=== PATIENT | male | born 1975 | race Caucasian/White ===

== ENCOUNTER 2021-08-04 14:52 | Emergency (ER) | payer BC ==
[~2021-08-04 14:52] MED LIST: Atropine Sulfate 1 mg/10 ml Syringe ONE; Calcium Chloride 1 GM/10 ML Abboject SYRINGE ONE; EPINEPHrine 1 MG/10 ML Abboject SYRINGE ONE; Heparin 1,000 UNITS/ML VIAL ONE; Sodium Bicarb 50 MEQ/50 ML Abboject 8.4% SYRINGE ONE
[2021-08-04] MEDS ORDERED: Ondansetron PF 4 MG/2 ML Vial ONE ×2 (15:06→15:27)
[2021-08-04] MEDS ORDERED: Heparin 25,000 units/D5W 500 ML ONE (15:09)
[2021-08-04 15:15] LABS: #Eosinphils 0.2 10x3/uL (0.0-0.5); #Monocytes 0.6 10x3/uL (0.0-1.1); #Neutrophils 7.1 10x3/uL (1.5-8.4); %Basophils 0.3 % (0.0-2.0); %Eosinophils 1.6 % (0.0-6.0); %Lymphocytes 23.2 % (18.0-47.0); %Monocytes 5.9 % (0.0-10.0); %Neutrophils 68.5 % (40.0-75.0); Hemoglobin 13.5 g/dL (13.5-17.5); Mean Corpuscular HGB CONC 33.7 g/dL (32.0-36.0); Mean Corpuscular Volume 83.2 fl (81.2-95.1); Mean Platelet Volume 10.2 fl (7.4-10.4); Platelet Count 327 10x3/uL (150-450); RBC Distribution Width 13.6 % (11.5-14.5); Red Blood Cell (RBC) Count 4.82 10x6/uL (4.32-5.72); White Blood Cell (WBC) Count 10.4 10x3/uL (3.5-10.5)
[2021-08-04 15:25] LABS: PTT 21.4 sec (22.0-33.0); Prothrombin Time 11.2 sec (9.5-12.1)
[2021-08-04] MEDS ORDERED: Aggrastat 12.5 MG/250 ML 0 ML ONE (15:29)
[2021-08-04 15:30] LABS: ALT (SGPT) 39 U/L (8-55); AST (SGOT) 35 U/L (5-34); Alkaline Phosphatase 81 U/L (40-110); Anion Gap 20 mmol/L (10-20); BUN (Urea Nitrogen) 10 mg/dL (8.9-20.6); CK (CPK) 347 U/L (30-200); Calc. Creatinine Clearance 0 mL/min (70-130); Carbon Dioxide 14 mmol/L (22-29); Chloride 104 mmol/L (98-107); Globulin 2.5 g/dL (2.4-3.5); Glucose 439 mg/dL (70-105); Lipase 12 U/L (8-78); Potassium 3.3 mmol/L (3.5-5.1); Protein, Total 6.5 g/dL (6.0-8.3); Sodium 135 mmol/L (136-145)
[2021-08-04] MEDS ORDERED: Furosemide 40 MG/4 ML VIAL ONE (16:14)
[2021-08-04 16:17] LABS: SARS-CoV-2 NAA Rapid Test Not Detected (NotDetected)
[2021-08-04] MEDS ORDERED: Rocuronium Bromide 50 MG/5 ML VIAL ONE ×2 (16:25→16:26)
== END 2021-08-04 15:51 | disposition expired ==
LOC: CSHERS 14:52
DX: I21.3 ST elevation (STEMI) myocardial infarction of unspecified site (principal); Z20.822 Contact with and (suspected) exposure to COVID-19
CPT/HCPCS: 36416; 71045; 80053; 82550; 83690; 83880; 84484; 85025; 85347; 85610; 85730; 92941; 92978; 92979; 93005; 93454; 96374; 96376; 99152; 99153; C1753; C1874; C1887; C9606; J0171; J0461; J1644; J1940; J2405; J3246; U0002